=== PATIENT | male | born 2005 | race Caucasian/White ===

== ENCOUNTER 2024-05-15 06:47 | Emergency (ER) | payer OTHER ==
[~2024-05-15] VITALS: Ht 182.9 cm; Wt 63.5 kg
[2024-05-15 06:49] VITALS: BP 114/64; PULSE 95; RESP 20; TEMP 98.5; O2SAT 98
[2024-05-15 07:19] VITALS: BP 114/64; PULSE 95; RESP 20; TEMP 98.5; O2SAT 98
== END 2024-05-15 07:19 ==
LOC: MED 06:47
DX: S29.012A Strain of muscle and tendon of back wall of thorax, initial encounter (principal); Z02.89 Encounter for other administrative examinations; M25.531 Pain in right wrist; V89.2XXA Person injured in unspecified motor-vehicle accident, traffic, initial encounter; Y93.89 Activity, other specified; Y92.410 Unspecified street and highway as the place of occurrence of the external cause; Y99.8 Other external cause status
CPT/HCPCS: 99283